=== PATIENT | male | born 1970 | race Caucasian/White ===

== ENCOUNTER 2024-03-11 16:50 | Emergency (ER) | payer MEDICAID, OTHER ==
[2024-03-11] MEDS ORDERED: Dexamethasone 10 MG/ML VIAL ONE (17:45)
[2024-03-11] MEDS ORDERED: Ketorolac Tromethamine 30 MG (1 mL) VIAL ONE (17:45)
== END 2024-03-11 18:41 | disposition home or self-care (01) ==
LOC: BURERS 16:50
DX: M67.834 Other specified disorders of tendon, left wrist (principal); G56.02 Carpal tunnel syndrome, left upper limb; E11.9 Type 2 diabetes mellitus without complications; X50.3XXA Overexertion from repetitive movements, initial encounter; Y93.F2 Activity, caregiving, lifting; Y92.69 Other specified industrial and construction area as the place of occurrence of the external cause
CPT/HCPCS: 96372; 99283; J1100; J1885